=== PATIENT | male | born 1980 | race African-American/Black ===

== ENCOUNTER 2022-07-03 10:15 | Inpatient (IN) | payer MEDICAID ==
[~2022-07-03] VITALS: Ht 172.7 cm; Wt 62.0 kg
[2022-07-03] MEDS ORDERED: SODIUM CHLORIDE 0.9% 1,000 ML IV ONE (11:15)
[2022-07-03] MEDS ORDERED: LORazepam 2 MG/ML VIAL IVP ONE (11:15)
[2022-07-03 11:42] LABS: BASOPHILS % (AUTO) 1.1 % (0.0-2.0); EOSINOPHILS % (AUTO) 0.6 % (1.0-6.0); HEMATOCRIT 44.7 % (41-53); HEMOGLOBIN 15.5 g/dL (13.5-17.5); MEAN CORPUSCULAR HEMOGLOBIN 33.4 pg (26.0-34.0); MEAN CORPUSCULAR HGB CONC 34.7 G/dL (31.0-37.0); MEAN CORPUSCULAR VOLUME 96 fL (80-100); MONOCYTES # (AUTO) 0.7 K/uL (0.1-1.0); MONOCYTES % (AUTO) 9.7 % (2.0-9.0); NEUTROPHILS # (AUTO) 4.9 K/uL (1.8-7.7); NEUTROPHILS % (AUTO) 73.6 % (40.0-70.0); PLATELET COUNT (AUTO) 265 K/uL (150-450); RED BLOOD CELL COUNT(AUTO) 4.65 MIL/uL (4.50-5.90); RED CELL DISTRIBUTION WIDTH 14.6 % (11.5-14.5)
[2022-07-03 11:54] LABS: ANION GAP 12 mmol/L (8-16); CALCIUM, TOTAL 8.9 mg/dL (8.8-10.5); CARBON DIOXIDE 29 mmol/L (22-29); CHLORIDE 103 mmol/L (98-107); CREATININE 0.93 mg/dL (0.60-1.30); GLUCOSE,RANDOM 100 mg/dL (70-110); SODIUM SERUM 144 mmol/L (136-145); UREA NITROGEN, BLOOD 7 mg/dL (7-18)
[2022-07-03 11:55] LABS: GLOMERULAR FILTR. RATE CALC > 60 mL/min (>60)
[2022-07-03 11:57] LABS: INR 0.9 (0.9-1.1); PROTHROMBIN TIME 10.1 SEC (9.4-11.6)
[2022-07-03 12:00] LABS: ALANINE AMINOTRANSFERASE 28 U/L (12-78); ALBUMIN 3.7 g/dL (3.4-5.0); ALKALINE PHOSPHATASE 69 U/L (46-116); ASPARTATE AMINOTRANSFERASE 33 U/L (15-37); BILIRUBIN,TOTAL 0.8 mg/dL (0.1-1.0); TOTAL PROTEIN, SERUM 7.6 g/dL (6.4-8.2)
[2022-07-03 12:37] LABS: COVID AG,FIA SOURCE NASOPHARYNGEAL
[2022-07-03] MEDS ORDERED: LORazepam 2 MG/ML VIAL IVP PRN (12:45)
[2022-07-03] MEDS ORDERED: MAGNESIUM OXIDE 400 MG TABLET PO PRN (12:45)
[2022-07-03] MEDS ORDERED: ONDANSETRON HCL 4 MG/2 ML VIAL IVP PRN (12:45)
[2022-07-03] MEDS ORDERED: MAGNESIUM HYDROXIDE SUSPENSION 30 ML UDCUP PO PRN (12:45)
[2022-07-03] MEDS ORDERED: MAGNESIUM SULFATE 4 GM/WATER 100 ML IV PRN (12:45)
[2022-07-03] MEDS ORDERED: MAGNESIUM SULFATE 2 GM/WATER 50 ML IV PRN (12:45)
[2022-07-03] MEDS ORDERED: PANTOPRAZOLE SODIUM 40 MG/VIAL IVP SCH (12:45)
[2022-07-03] MEDS ORDERED: ACETAMINOPHEN 325 MG TABLET PO PRN (12:45)
[2022-07-03] MEDS ORDERED: RINGERS SOLUTION,LACTATED 1,000 ML IV ONE (13:00)
[2022-07-03] MEDS ORDERED: MAGNESIUM SULFATE 2 GM, MVI, ADULT NO.1 WITH VIT K 10 ML, THIAMINE 100 MG, FOLIC ACID 1... IV ONE ×5 (13:00)
[2022-07-03] MEDS: POTASSIUM CHLORIDE 20 MEQ ER TABLET PO PRN (19:55)
[2022-07-03] MEDS: HydrALAZINE HCL 20 MG/ML VIAL IVP PRN (19:56)
[2022-07-03 21:00] VITALS: BP 168/112
[2022-07-03] MEDS: PANTOPRAZOLE SODIUM 40 MG/VIAL IVP SCH (21:24)
[2022-07-03] MEDS: ChlordiazePOXIDE HCL 10 MG CAPSULE PO SCH (23:34)
[2022-07-04 00:33] LABS: APPEARANCE,URINE CLEAR (CLEAR); BILIRUBIN,URINE NEGATIVE (NEGATIVE); GLUCOSE, URINE (UA) TRACE mg/dL (NEGATIVE); KETONES,URINE 40-60 mg/dL (NEGATIVE); LEUKOCYTE ESTERASE ,URINE NEGATIVE (NEGATIVE); NITRATE,URINE NEGATIVE (NEGATIVE); OCCULT BLOOD,URINE NEGATIVE (NEGATIVE); PH,URINE 7.5 (5.0-8.0); PROTEIN,URINE NEGATIVE (NEGATIVE); SPECIFIC GRAVITIY, URINE 1.011 (1.003-1.030); UROBILINOGEN,URINE <=1.0 mg/dL (<=1.0)
[2022-07-04 01:15] VITALS: BP 199/114
[2022-07-04] MEDS: LORazepam 2 MG/ML VIAL IVP PRN (01:21)
[2022-07-04 04:30] VITALS: BP 188/109
[2022-07-04] MEDS: HydrALAZINE HCL 20 MG/ML VIAL IVP PRN ×2 (04:51→08:35)
[2022-07-04 07:25] LABS: MAGNESIUM 2.5 mg/dL (1.80-2.40)
[2022-07-04 07:33] LABS: POTASSIUM 2.9 mmol/L (3.5-5.1)
[2022-07-04 08:15] VITALS: BP 179/109
[2022-07-04] MEDS: ChlordiazePOXIDE HCL 10 MG CAPSULE PO SCH ×2 (08:34→19:56)
[2022-07-04] MEDS: PANTOPRAZOLE SODIUM 40 MG/VIAL IVP SCH ×2 (08:35→19:56)
[2022-07-04] MEDS: POTASSIUM CHL 10 MEQ/WATER 50 ML IV PRN ×3 (08:37→11:47)
[2022-07-04] MEDS: MULTIVITAMINS WITH MINERALS, THERAPEUTIC TABLET PO SCH (10:30)
[2022-07-04] MEDS: POTASSIUM CHLORIDE 20 MEQ ER TABLET PO PRN (21:14)
[2022-07-05] VITALS (9 sets, daily range): BP systolic 148–195; BP diastolic 103–129
[2022-07-05] MEDS: HydrALAZINE HCL 20 MG/ML VIAL IVP PRN ×2 (04:14→12:24)
[2022-07-05] MEDS: PANTOPRAZOLE SODIUM 40 MG/VIAL IVP SCH (08:03)
[2022-07-05] MEDS: ChlordiazePOXIDE HCL 10 MG CAPSULE PO SCH (08:04)
[2022-07-05] MEDS: MULTIVITAMINS WITH MINERALS, THERAPEUTIC TABLET PO SCH (08:04)
[2022-07-05] MEDS: POTASSIUM CHLORIDE 20 MEQ ER TABLET PO PRN (08:05)
[2022-07-05] MEDS ORDERED: CloNIDine HCL 0.1 MG TABLET PO PRN (14:00)
[2022-07-05] MEDS: LORazepam 2 MG/ML VIAL IVP PRN (18:00)
[2022-07-05] MEDS ORDERED: PROPOFOL 1% 20 ML VIAL IVP ONE (21:45)
== END 2022-07-05 21:20 | disposition left against medical advice (07) | DRG 254 ==
LOC: EMS 10:15 → 5S 18:37
PROVIDERS: ADMIT Internal Medicine; ATTEND Internal Medicine
PROC: 0CCM8ZZ Extirpation of Matter from Pharynx, Via Natural or Artificial Opening Endoscopic (ICD-10-PCS; principal; 2022-07-03 13:40)
DX: T18.128A Food in esophagus causing other injury, initial encounter (principal); E44.0 Moderate protein-calorie malnutrition; E87.6 Hypokalemia; Z20.822 Contact with and (suspected) exposure to COVID-19; X58.XXXA Exposure to other specified factors, initial encounter; F10.139 Alcohol abuse with withdrawal, unspecified; I10 Essential (primary) hypertension; K20.0 Eosinophilic esophagitis; Z83.3 Family history of diabetes mellitus; Z79.899 Other long term (current) drug therapy; Y93.89 Activity, other specified; Y92.89 Other specified places as the place of occurrence of the external cause; Y99.8 Other external cause status; Z68.20 Body mass index [BMI] 20.0-20.9, adult
CPT/HCPCS: 71045; 80053; 81003; 83735; 84132; 85025; 85610; 85730; 93005; 99285; C9113; J0360; J2060; J2704; J3411; J3475; J3480; J3490; J7030; J7120; 36415-L1; 36415-TC; Z7610

== ENCOUNTER 2022-09-24 12:53 | Emergency (ER) | payer MEDICAID ==
[~2022-09-24] VITALS: Ht 170.2 cm; Wt 61.4 kg
[2022-09-24] MEDS ORDERED: DIAZEPAM 5 MG/ML 2 ML SYRINGE IVP ONE (13:15)
[2022-09-24] MEDS ORDERED: SODIUM CHLORIDE 0.9% 1,000 ML IV ONE (13:15)
[2022-09-24 13:52] LABS: COVID AG,FIA SOURCE NASOPHARYNGEAL
[2022-09-24 14:06] LABS: EOSINOPHILS % (AUTO) 1.4 % (1.0-6.0); HEMATOCRIT 44.7 % (41-53); HEMOGLOBIN 14.7 g/dL (13.5-17.5); LYMPHOCYTES # (AUTO) 0.7 K/uL (1.0-4.8); MEAN CORPUSCULAR HEMOGLOBIN 33.7 pg (26.0-34.0); MEAN CORPUSCULAR HGB CONC 32.8 G/dL (31.0-37.0); MEAN CORPUSCULAR VOLUME 103 fL (80-100); MONOCYTES # (AUTO) 0.5 K/uL (0.1-1.0); MONOCYTES % (AUTO) 4.3 % (2.0-9.0); NEUTROPHILS # (AUTO) 10.6 K/uL (1.8-7.7); PLATELET COUNT (AUTO) 240 K/uL (150-450); RED BLOOD CELL COUNT(AUTO) 4.36 MIL/uL (4.50-5.90); RED CELL DISTRIBUTION WIDTH 13.6 % (11.5-14.5)
[2022-09-24 14:07] LABS: NEUTROPHILS % (AUTO) 87.3 % (40.0-70.0)
[2022-09-24 14:13] LABS: ANION GAP 14 mmol/L (8-16); CALCIUM, TOTAL 8.6 mg/dL (8.8-10.5); CARBON DIOXIDE 22 mmol/L (22-29); CHLORIDE 104 mmol/L (98-107); CREATININE 0.99 mg/dL (0.60-1.30); GLOMERULAR FILTR. RATE CALC > 60 mL/min (>60); GLUCOSE,RANDOM 106 mg/dL (70-110); POTASSIUM 3.6 mmol/L (3.5-5.1); SODIUM SERUM 140 mmol/L (136-145); UREA NITROGEN, BLOOD 7 mg/dL (7-18)
[2022-09-24 14:19] LABS: ALANINE AMINOTRANSFERASE 24 U/L (12-78); ALBUMIN 3.2 g/dL (3.4-5.0); ALKALINE PHOSPHATASE 66 U/L (46-116); ASPARTATE AMINOTRANSFERASE 34 U/L (15-37); BILIRUBIN,TOTAL 0.3 mg/dL (0.1-1.0); TOTAL PROTEIN, SERUM 6.3 g/dL (6.4-8.2)
[2022-09-24] MEDS ORDERED: NiCARDipine HCL 25 MG in SODIUM CHLORIDE 0.9% 240 ML IV PRN (14:30)
[2022-09-24] MEDS ORDERED: LevETIRAcetam 1,000 MG in DEXTROSE 5%-WATER 100 ML IV ONE (14:30)
[2022-09-24] MEDS ORDERED: LORazepam 2 MG/ML VIAL IVP ONE (14:45)
[2022-09-24] MEDS: NiCARDipine HCL 25 MG in SODIUM CHLORIDE 0.9% 240 ML IV PRN ×2 (14:50→14:54)
[2022-09-24 14:54] LABS: PROTHROMBIN TIME 10.3 SEC (9.4-11.6)
[2022-09-24 15:13] LABS: INFLUENZA TYPE A NEGATIVE FOR TYPE A (NEGATIVE); INFLUENZA TYPE B NEGATIVE FOR TYPE B (NEGATIVE)
[2022-09-24 15:56] LABS: GLUCOSE,POINT OF CARE 119 MG/DL (70-110)
[2022-09-24 16:30] VITALS: BP 152/95
== END 2022-09-24 16:45 | disposition short-term general hospital (02) ==
LOC: EMS 12:55 → MERGE 12:55 → EDBD 12:55 → EMS 16:45
DX: I61.9 Nontraumatic intracerebral hemorrhage, unspecified (principal); I16.1 Hypertensive emergency; F10.239 Alcohol dependence with withdrawal, unspecified; Z20.822 Contact with and (suspected) exposure to COVID-19
CPT/HCPCS: 99291; 96365; 70450; 96375; 96361; 87426; 80053; 82962; 83735; 85025; 85610; 87804; 36415; 96368; J0712; G0480; J1885; J3490; J7060; J7050